=== PATIENT | female | born 1980 | race Two or more races ===

== ENCOUNTER 2017-02-17 09:24 | Emergency (ER) | payer MEDICAID, OTHER ==
[~2017-02-17] VITALS: Ht 160 cm; Wt 97.0 kg
[2017-02-17] MEDS ORDERED: KETOROLAC TROMETHAMINE 60 MG/2 ML VIAL IM ONE (11:15)
[2017-02-17 11:45] VITALS: BP 125/72
== END 2017-02-17 12:46 | disposition home or self-care (01) ==
LOC: EMS 09:27
DX: S43.401A Unspecified sprain of right shoulder joint, initial encounter (principal); M25.511 Pain in right shoulder; F12.10 Cannabis abuse, uncomplicated; X58.XXXA Exposure to other specified factors, initial encounter; Y93.89 Activity, other specified; Y92.9 Unspecified place or not applicable; Y99.9 Unspecified external cause status
CPT/HCPCS: 29105; 73030; 96372; 99284; J1885

== ENCOUNTER 2018-03-16 08:55 | Emergency (ER) | payer OTHER ==
[~2018-03-16] VITALS: Ht 160 cm; Wt 90.9 kg
[2018-03-16] MEDS ORDERED: PROZ10 PO (09:01)
[2018-03-16 09:27] VITALS: BP 102/71
[2018-03-16] MEDS ORDERED: HYDROCODONE/ACETAMINOPHEN 5-325 MG TABLET PO ONE (09:45)
== END 2018-03-16 10:58 | disposition home or self-care (01) ==
LOC: EMS 08:57
DX: S39.012A Strain of muscle, fascia and tendon of lower back, initial encounter (principal); F12.10 Cannabis abuse, uncomplicated; X50.1XXA Overexertion from prolonged static or awkward postures, initial encounter; Y93.89 Activity, other specified; Y92.810 Car as the place of occurrence of the external cause; Y99.8 Other external cause status; Z79.899 Other long term (current) drug therapy
CPT/HCPCS: 99283

== ENCOUNTER 2019-05-04 22:09 | Emergency (ER) | payer OTHER ==
[~2019-05-04] VITALS: Ht 157.5 cm; Wt 90.9 kg
[~2019-05-04 22:09] MED LIST: PROZ10 PO
[2019-05-04 22:36] VITALS: BP 122/56
== END 2019-05-04 23:02 | disposition home or self-care (01) ==
LOC: EMS 22:10
DX: H66.92 Otitis media, unspecified, left ear (principal); H60.92 Unspecified otitis externa, left ear; F12.90 Cannabis use, unspecified, uncomplicated

== ENCOUNTER 2023-07-17 19:10 | Emergency (ER) | payer OTHER ==
[~2023-07-17] VITALS: Ht 160 cm; Wt 96.4 kg
[2023-07-17 19:23] VITALS: TEMP 97.6
[2023-07-17 22:05] VITALS: BP 138/78; PULSE 65; RESP 18
[2023-07-17] MEDS ORDERED: ACETAMINOPHEN 500 MG TABLET PO ONE (22:15)
[2023-07-17] MEDS ORDERED: KETOROLAC TROMETHAMINE 60 MG/2 ML VIAL IM ONE (22:15)
[2023-07-17] MEDS ORDERED: BACLOFEN 10 MG TABLET PO ONE (22:15)
[2023-07-17] MEDS ORDERED: BACL10TA PO (23:58)
[2023-07-17] MEDS ORDERED: ACET-66 PO (23:58)
[2023-07-17] MEDS ORDERED: IBUP-1554 PO (23:58)
== END 2023-07-18 00:07 | disposition home or self-care (01) ==
LOC: EMS 19:11
DX: S13.4XXA Sprain of ligaments of cervical spine, initial encounter (principal); S33.5XXA Sprain of ligaments of lumbar spine, initial encounter; F12.90 Cannabis use, unspecified, uncomplicated; Z98.890 Other specified postprocedural states; V98.8XXA Other specified transport accidents, initial encounter; Y93.89 Activity, other specified; Y92.89 Other specified places as the place of occurrence of the external cause; Y99.8 Other external cause status
CPT/HCPCS: 99284; 96374; 72040; 72070; 72100; J1885; 99285